=== PATIENT | female | born 1955 | race Caucasian/White ===

== ENCOUNTER 2017-09-28 17:19 | Emergency (ER) | payer MEDICAID ==
[~2017-09-28] VITALS: Ht 154.9 cm; Wt 104.3 kg
[~2017-09-28 17:19] MED LIST: ACIPHEX 20 MG T20 MG PO; ADVAIR 500-501 EACH INH; ADVAIR HFA115 MCG/21 INH; ALBUTEROL INH INH; AMBIEN 10 MG TA10 MG; AMITRIPTYLINE H75 M1 PO; ASPIRIN81 M2 PO; DARVOCET-N 1001 EACH PO; EFFEXOR100 MG PO; ELAVIL PO; FLEXERIL PO; GABAPENTIN 100100 MG PO; HYDROCODON-ACE1 EAC7 PO; LEVAQUIN 500 M500 M2 PO; MEDROLDOSEPACK PO; MIRAPEX0.25 MG PO; MIRAPEX0.5 MG PO; NAPROSYN375 MG PO; NEURONTIN 300300 M1 PO; NEURONTIN 400400 M1 PO; NORCO 5-325 TA1 EACH PO; NORFLEX100 MG PO; OMEPRAZOLE; ONDANSETRON HCL4 M2 PO; POTASSIUM20 PO; PREDNISONE 10 M10 MG PO; PREDNISONE 20 M20 M1 PO; PREDNISONE 20 M20 MG PO; PREDNISONE 5 MG5 M1 PO; PRILOSEC 20 MG20 MG PO; RESTORIL15 MG PO; ROBAXIN 750 MG750 M1 PO; SEROQUEL XR 30300 M1 PO; SKELAXIN 800 M800 M1 PO; SPIRIVA INH; TOPAMAX 100 MG100 MG PO; TOPAMAX100 MG PO; TRIAMTERENE-HC1 EAC1 PO; VALIUM5 MG PO; VENTOLIN HFA 1818 GM INH; VICODIN 5-5001 EACH PO; VICODIN ES 7.51 EACH PO; ZANAFLEX4 M1 PO; ZPAK PO; [UNRECOGNIZED DRUG - OTHER] PO
[2017-09-28 18:04] LABS: ABSOLUTE BASOPHILS 0.1 thou/uL (0.0-0.2); ABSOLUTE EOSINOPHILS 0.2 thou/uL (0.0-0.7); ABSOLUTE LYMPHOCYTES 2.3 thou/uL (0.8-5.3); ABSOLUTE MONOCYTES 0.4 thou/uL (0.0-1.2); ABSOLUTE NEUTROPHILS 5.6 thou/uL (1.6-8.1); BASOPHILS 1.1 %; EOSINOPHILS 2.5 %; HEMATOCRIT 45.5 % (37.0-47.0); HEMOGLOBIN 15.1 gm/dL (12.0-15.0); LYMPHOCYTES 26.7 %; MCH 27.8 pg (26.0-34.0); MCHC 33.2 g/dL (28.0-37.0); MCV 83.6 fL (80.0-100.0); MPV 7.5 fl. (7.2-11.1); NUCLEATED RBCS 0 /100WBC; PLATELET COUNT* 291 thou/uL (150-400); POLYS 64.7 %; RBC 5.44 mil/uL (4.20-5.00); RDW-CV 14.2 % (10.5-14.5); WBC 8.6 thou/uL (4.0-11.0)
[2017-09-28 18:17] LABS: ANION GAP 9 mmol/L (7-16); BUN 18 mg/dL (7-18); CALCIUM 8.8 mg/dL (8.5-10.1); CHLORIDE 108 mmol/L (98-107); CO2 26 mmol/L (21-32); CREATININE 0.8 mg/dL (0.6-1.3); GLUCOSE 98 mg/dL (70-99); POTASSIUM 3.9 mmol/L (3.5-5.1); SODIUM 143 mmol/L (136-145)
[2017-09-28 18:28] LABS: ALBUMIN 3.5 g/dL (3.4-5.0); ALKALINE PHOSPHATASE 102 U/L (46-116); NT-PRO BRAIN NAT PEPTIDE 63 pg/mL (<300); SGOT 17 U/L (15-37); SGPT 21 U/L (30-65); TOTAL BILIRUBIN 0.5 mg/dL (<0.1-1.0); TOTAL PROTEIN 7.1 g/dL (6.4-8.2); TROPONIN-I LEVEL <0.06 ng/mL (<0.06)
[2017-09-28] MEDS ORDERED: ZPAK PO (20:30)
[2017-09-28] MEDS ORDERED: PREDNISONE50 MG PO (20:30)
[2017-09-28] MEDS ORDERED: PROAIR HFA8.5 GM INH (20:30)
[2017-09-28] MEDS ORDERED: TUSSIN15 MG/5 ML PO (20:30)
[2017-09-28] MEDS ORDERED: ROBAXIN500 MG PO (20:30)
[2017-09-28 20:35] VITALS: BP 175/92
--- NOTE | 2017-09-29 10:37 | EKG ---
[place] [address] ELECTROCARDIOGRAM REPORT Name: MICHAEL GRAHAM Room: [facility]#: [id number] Admission: 09/28/17 Attend Phys: Discharge: 09/28/17 Date of : 57 Report #: [id number] THIS REPORT FOR: //name// [facility] ED Test Date: 2017-09-28 Test Time: 17:51:00 Pat Name: MICHAEL GRAHAM Department: Room: Gender: F [employer] Chief: Maribel JONES : 1955 Requested By: Xuan Beckman Order Number: [id number] MD: Keenan Sanchez Measurements Intervals [place] Rate: 84 P: 32 VT: 158 QRS: 25 QRSD: 110 T: 33 QT: 374 QTc: 443 Interpretive Statements Sinus rhythm Low voltage, precordial leads Compared to ECG 04/09/2014 21:50:03 Low QRS voltage now present Electronically Signed On 09-29-2017 10:37:18 CDT by Keenan Sanchez [email or web address] <ELECTRONICALLY SIGNED> By: Keenan Sanchez MD, FACC 09/29/17 1037 [id number] 175 Keenan Sanchez MD, [facility] /EPI
== END 2017-09-28 20:36 | disposition home or self-care (01) ==
LOC: M.ERS 17:19
PROVIDERS: Nurse Practitioner Family
DX: J40 Bronchitis, not specified as acute or chronic (principal); J44.9 Chronic obstructive pulmonary disease, unspecified; I10 Essential (primary) hypertension; G89.29 Other chronic pain; M54.9 Dorsalgia, unspecified; Z88.8 Allergy status to other drugs, medicaments and biological substances; Z90.710 Acquired absence of both cervix and uterus; Z90.49 Acquired absence of other specified parts of digestive tract; F17.210 Nicotine dependence, cigarettes, uncomplicated